=== PATIENT | male | born 1975 | race Caucasian/White ===

== ENCOUNTER 2016-09-09 01:07 | Emergency (ER) | payer OTHER ==
[~2016-09-09 01:07] MED LIST: AUGMENTIN 500-1 EACH PO; PERCOCET 5-3251 EACH PO
== END 2016-09-09 03:35 | disposition home or self-care (01) ==
LOC: FER 01:07
DX: M48.07 Spinal stenosis, lumbosacral region (principal); G89.29 Other chronic pain; F17.210 Nicotine dependence, cigarettes, uncomplicated
CPT/HCPCS: 72131; J1885; J2270; J2930